=== PATIENT | female | born 1975 | race Caucasian/White ===

== ENCOUNTER 2021-12-14 23:25 | Emergency (ER) | payer OTHER ==
[2021-12-14] MEDS ORDERED: Dexamethasone 10 MG/ML VIAL ONE (23:39)
[2021-12-14] MEDS ORDERED: Benzocaine 20% Spray 60 ML CAN ONE (23:40)
[2021-12-15] MEDS ORDERED: Lidocaine 1% w/Epinephrine 1:100K 20 ML VIAL ONE (00:32)
[2021-12-15] MEDS ORDERED: Hydrocodone-Acetamin 15 ML UDCUP ONE (01:23)
== END 2021-12-15 01:53 | disposition home or self-care (01) ==
LOC: ERS 23:25
DX: J36 Peritonsillar abscess (principal)
CPT/HCPCS: 42700; 87070; J1100